=== PATIENT | male | born 1975 | race Caucasian/White ===

== ENCOUNTER 2019-12-18 22:33 | Emergency (ER) | payer SELFPAY ==
[2019-12-18 22:33] VITALS: PULSE 77
--- NOTE | 2019-12-18 22:56 | XRR_ITS ---
PROCEDURE INFORMATION: Exam: XR Left Hand Exam date and time: 12/18/2019 11:21 PM Age: 44 years old Clinical indication: Pain and injury or trauma; Blunt trauma (contusions or hematomas); Left; Injury date: 12/18/19; Patient HX: Fall hand pain, prior fracture TECHNIQUE: Imaging protocol: XR Left hand. Views: 3 or more views. COMPARISON: No relevant prior studies available. FINDINGS: Bones/joints: Normal. Soft tissues: Normal. XR/XR hand LT min 3V* [id number] IMPRESSION: No acute findings.
[2019-12-18 23:02] VITALS: BP 123/81; PULSE 77; RESP 14; TEMP 36.3; O2SAT 97; BMI 24.3
[2019-12-18 23:06] VITALS: BP 123/81; PULSE 77; RESP 14; O2SAT 100
--- NOTE | 2019-12-18 23:19 | ED_ITS ---
HPI - Extremity Problem General: Chief complaint: Extremity Injury, Upper Stated complaint: Left Hand Injury Time Seen by Provider: 12/18/19 23:11 Source: patient Mode of arrival: ambulatory Limitations: no limitations History of Present Illness: HPI Narrative: 44-year-old male patient comes in for injury to the left wrist area. Patient states he was walking on the stairs and slipped causing him to land with his left wrist inverted. Patient has a history of injury to the left wrist area. Patient appears well. Patient appears no acute distress MD Complaint: extremity pain Review of Systems General: Reports: 10 or more systems reviewed and unremarkable except in HPI and below Musc: Reports: joint pain Physical Exam Const: COMMON NORMALS: no acute distress and patient oriented x3 GENERAL APPEARANCE: cooperative HENMT: COMMON NORMALS: normocephalic and Normal external nose present HEAD & SCALP: normal to inspection and normocephalic NOSE: Normal external nose present MOUTH: Normal oral and palatal mucosa present Eye: GENERAL EYE: appearance normal, both eyes and all related structures Neck/C-Spine: COMMON NORMALS: full ROM Chest: COMMONS NORMALS: normal inspection of the chest Resp: COMMON NORMALS: normal respiratory effort EFFORT & INSPECTION: Yes able to speak in complete sentences Cardio: COMMON NORMALS: regular rate and regular rhythm RATE: regular rate RHYTHM: regular rhythm GI: COMMON NORMALS: non-tender Back/Pelvis: COMMON NORMALS: thoracic and lumbar spine normal to inspection Extremity: COMMON NORMALS: normal to inspection Neuro: COMMON NORMALS: patient oriented x3 and moves all extremities Psych: COMMON NORMALS: mental status grossly normal and cooperative Skin: COMMON NORMALS: no rashes or lesions noted GENERAL SKIN EXAM: no rashes or lesions noted Course Vital Signs: Vital signs: Vital Signs Temperature 97.3 F L 12/18/19 23:02 Pulse Rate 77 12/18/19 23:06 Respiratory Rate 14 12/18/19 23:06 Blood Pressure 123/81 12/18/19 23:06 Pulse Oximetry 100 12/18/19 23:06 MDM - Extremity (Nontraumatic) MDM Narrative: Medical decision making narrative: Patient comes in for injury to the left wrist. Patient does have a history of fracture in the wrist from a previous injury and 2014. Patient appears well. Patient appears in no acute distress. Patient has some snuffbox tenderness. Minimal swelling otherwise is noted. Differential diagnosis includes fracture, sprain, contusion. X-ray has a possible fracture to the scaphoid of the left wrist. We will splint the patient and have him follow-up with orthopedics. Case management request placed. Patient was placed in the thumb spica splint. Patient reported understanding of care plan and need for follow-up. Discharge Plan Discharge Patient Disposition: Home Clinical Impression: Scaphoid fracture, wrist, closed Qualifiers: Encounter type: initial encounter Scaphoid bone location: middle third Fracture alignment: nondisplaced Laterality: left Qualified Code(s): S62.025A - Nondisplaced fracture of middle third of navicular [scaphoid] bone of left wrist, initial encounter for closed fracture Condition: Stable Prescriptions: New hydrocodone-acetaminophen 5-325 mg tablet 1 tab PO Q8H PRN (Reason: pain) Qty: 7 RF: 0 Discharge Orders: Discharge Order (Routine); Ordered 12/18/19 Ordered By: Rafat Taylor Discharge Diet: Usual diet Discharge Activity: Limit activity as instructed Patient Instructions: Wrist Fracture in Adults (ED) Activity Restrictions/Additional Instructions: Wear thumb spica splint for protection of fracture. Sling for comfort. Use acetaminophen and ibuprofen to control pain. Use hydrocodone for breakthrough pain. Follow-up with primary care for further treatment. Case management will contact you in regards to orthopedic follow-up. Coding Level of Care Code ED [employer] Developer for Allison Luciano Exam Comprehensive
--- NOTE | 2019-12-21 09:43 | DCPLANNER ---
business control manager had message to schedule a follow up appointment for patient with ortho. business control manager called the ortho clinic, spoke with Pat, gave clinic patients information. business control manager was told that patients information would be printed and reviewed. Clinic will call patient with appointment information.
--- NOTE | 2019-12-31 15:27 | DCPLANNER ---
Ortho clinic called senior case manager, was told that patient would need to follow up with a hand specialist in [place]. call center operations manager called patient to confirm who patient would like senior case manager to refer him to. Patient stated that it did not matter to him, senior case manager referred patient to [facility], faxed patients records to the clinic. call center operations manager will call patient with appointment information.
--- NOTE | 2020-01-14 12:26 | DCPLANNER ---
manager functional called the [facility] in [place] to confirm that an appointment had been scheduled for patient. manager functional was told that clinic called patient and he declined appointment at this time.
== END 2019-12-18 23:47 | disposition home or self-care (01) ==
PROVIDERS: Emergency Provider Nurse Practitioner Family
DX: S62.025A Nondisplaced fracture of middle third of navicular [scaphoid] bone of left wrist, initial encounter for closed fracture (principal); W01.0XXA Fall on same level from slipping, tripping and stumbling without subsequent striking against object, initial encounter
CPT/HCPCS: 12345; 73130; 99281; 99283